=== PATIENT | male | born 1955 | race Caucasian/White ===

== ENCOUNTER 2016-03-30 08:50 | Emergency (ER) | payer MEDICAID, OTHER ==
[~2016-03-30] VITALS: Ht 182.9 cm; Wt 104.3 kg
[2016-03-30 08:54] VITALS: BP 152/80
--- NOTE | 2016-03-30 08:58 | NUR ---
Patient ambulated to bed 3.
--- NOTE | 2016-03-30 09:07 | NUR ---
PT AAO,NO ACUTE DISTRESS NOTED.WENT TO XRAY ACCOMPANIED BY MATERIAL CHASER.
--- NOTE | 2016-03-30 09:18 | NUR ---
PT ZACK. BACK FROM XRAY.
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
--- NOTE | 2016-03-30 09:42 | NUR ---
Dr. Noriega evaluating patient at bedside.
--- NOTE | 2016-03-30 09:42 | NUR ---
Patient being evaluated by physician at bedside.
[2016-03-30] MEDS ORDERED: KETOROLAC 60 MG/2 ML VIAL IM ONE (09:50)
[2016-03-30 10:17] VITALS: BP 133/84
--- NOTE | 2016-03-30 10:18 | NUR ---
Patient discharged with v/s stable. Written and verbal after care instructions given and explained. Patient alert, oriented and verbalized understanding of instructions. Ambulatory with steady gait. All questions addressed prior to discharge. ID band removed. Patient advised to follow up with PMD. Rx of NORCO AND MOTRIN given. Patient educated on indication of medication including possible reaction and side effects. Opportunity to ask questions provided and answered.
== END 2016-03-30 10:18 | disposition home or self-care (01) ==
LOC: MED 08:55
DX: S13.4XXA Sprain of ligaments of cervical spine, initial encounter (principal); M25.561 Pain in right knee; J45.909 Unspecified asthma, uncomplicated; Z88.0 Allergy status to penicillin; V89.2XXA Person injured in unspecified motor-vehicle accident, traffic, initial encounter; Y93.89 Activity, other specified; Y92.89 Other specified places as the place of occurrence of the external cause; Y99.8 Other external cause status
CPT/HCPCS: 72040; 73562; 96372; 99284; J1885